=== PATIENT | female | born 1985 | race Two or more races ===

== ENCOUNTER 2019-09-04 10:40 | Emergency (ER) | payer OTHER ==
--- NOTE | 2019-09-04 10:55 | ER Document Report ---
ED Medical Screen (RME) - General Chief Complaint: Chest Pain Stated Complaint: CHEST/BACK/SIDE PAIN Time Seen by Provider: 09/04/19 10:45 - HPI Notes: 09/04/19 10:57 34 year old female to the ED with C/O left sided chest pain, flank pain, and back pain that began one week ago and has persisted. States that she was seen at the ER about 4 days ago and was given Flexeril. She states that this has not helped her pain. Movement increases her pain but she has baseline pain throughout. Denies any urinary complaints, hematuria, recent travel, leg swelling, history of clots, history of coagulopathy or familial coagulopathy. S he does not smoke, she does not have hypertension, diabetes, hyperlipidemia. I performed a brief medical screening exam on this patient and determined he needs further management and evaluation by means at ER provider. I placed initial orders to help expedite in his treatment plan today to include lab work and medications. - Related Data Allergies/Adverse Reactions: acetaminophen [From Vicodin] Allergy (Verified 09/04/19 10:57) hydrocodone [From Vicodin] Allergy (Verified 09/04/19 10:57) metoclopramide [From Reglan] Allergy (Verified 09/04/19 10:57)
[2019-09-04] MEDS ORDERED: KETOROLAC TROMETHAMINE INJ/PF 30 MG/1 ML SDV IV ONE (10:56)
[2019-09-04] MEDS ORDERED: ONDANSETRON HCL INJ/PF 4 MG/2 ML SDV IV ONE (10:56)
--- NOTE | 2019-09-04 12:11 | RADIOLOGY REPORT (SQ) ---
EXAM DESCRIPTION: CHEST 2 VIEWS COMPLETED DATE/TIME: 09/04/2019 11:58 am REASON FOR STUDY: chest pain/flank COMPARISON: None. EXAM PARAMETERS: NUMBER OF VIEWS: two views TECHNIQUE: Digital Frontal and Lateral radiographic views of the chest acquired. RADIATION DOSE: NA LIMITATIONS: none FINDINGS: LUNGS AND PLEURA: No opacities, masses or pneumothorax. No pleural effusion. MEDIASTINUM AND HILAR STRUCTURES: No masses or contour abnormalities. HEART AND VASCULAR STRUCTURES: Heart normal size. No evidence for failure. BONES: No acute findings. HARDWARE: None in the chest. OTHER: No other significant finding. IMPRESSION: NO ACUTE RADIOGRAPHIC FINDING IN THE CHEST. TECHNICAL DOCUMENTATION: JOB ID: [id number] [employer]- All Rights Reserved Reading location - IP/workstation name: [email or web address]
[2019-09-04 12:26] LABS: ABSOLUTE LYMPHOCYTES (AUTO) 1.7 10^3/uL (0.5-4.7); ABSOLUTE MONOCYTES (AUTO) 0.4 10^3/uL (0.1-1.4); APPEARANCE,URINE CLEAR; BASOPHILS % (AUTO) 0.4 % (0-2); BILIRUBIN,URINE NEGATIVE (NEGATIVE); COLOR,URINE STRAW; EOSINOPHILS % (AUTO) 0.7 % (0-6); GLUCOSE, URINE NEGATIVE (NEGATIVE); HEMATOCRIT 42.9 % (36.0-47.0); HEMOGLOBIN 14.8 g/dL (12.0-15.5); KETONES,URINE NEGATIVE (NEGATIVE); LYMPHOCYTES % (AUTO) 27.5 % (13-45); MEAN CORPUSCULAR HEMOGLOBIN 30.6 pg (27.0-33.4); MEAN CORPUSCULAR HGB CONC 34.5 g/dL (32.0-36.0); MEAN CORPUSCULAR VOLUME 89 fl (80-97); MONOCYTES % (AUTO) 6.6 % (3-13); PLATELET COUNT 210 10^3/uL (150-450); PROTEIN,URINE NEGATIVE (NEGATIVE); RED BLOOD COUNT 4.85 10^6/uL (3.72-5.28); RED CELL DISTRIBUTION WIDTH 13.4 % (11.5-14.0); SEGMENTED NEUTROPHILS % (AUTO) 64.8 % (42-78); TOTAL CELLS COUNTED % (AUTO) 100 %; URINE SPECIFIC GRAVITY 1.005; UROBILINOGEN,URINE NEGATIVE mg/dL (<2.0); WHITE BLOOD COUNT 6.2 10^3/uL (4.0-10.5)
[2019-09-04 12:51] LABS: ALBUMIN 4.6 g/dL (3.5-5.0); ALKALINE PHOSPHATASE 50 U/L (38-126); ANION GAP 10 (5-19); ASPARTATE AMINO TRANSFERASE 18 U/L (14-36); BILIRUBIN,TOTAL 0.6 mg/dL (0.2-1.3); BLOOD UREA NITROGEN 14 mg/dL (7-20); CALCIUM 9.7 mg/dL (8.4-10.2); CARBON DIOXIDE 26 mmol/L (22-30); CHLORIDE 103 mmol/L (98-107); GLUCOSE 88 mg/dL (75-110); POTASSIUM 4.5 mmol/L (3.6-5.0); TOTAL PROTEIN 8.2 g/dL (6.3-8.2)
[2019-09-04] MEDS ORDERED: PREDNISONE 20 MG TABLET PO ONE (14:47)
--- NOTE | 2019-09-04 14:51 | ER Document Report ---
ED Cardiac - General Chief Complaint: Chest Pain Stated Complaint: CHEST/BACK/SIDE PAIN Time Seen by Provider: 09/04/19 10:45 Information source: Patient Notes: HPI: 34-year-old female who states 1 week of some left-sided back pain worse when she takes a deep breath and moves her left arm radiating to her left chest. History of costochondritis x1 in the past. No runny nose, congestion, cough, fevers, calf pain or leg swelling, recent trips or travel. No other aggravating or relieving factors. No vomiting or diarrhea. ROS: See HPI All other review of systems reviewed and otherwise negative Reviewed vital signs and nursing note as charted by RN. PHYSICAL EXAM: CONSTITUTIONAL: Alert and oriented and responds appropriately to questions. Well-appearing; well-nourished HEAD: Normocephalic; atraumatic CARD: Regular rate and rhythm; no murmurs; symmetric distal pulses RESP: Normal chest excursion without splinting or tachypnea; breath sounds clear and equal bilaterally; no wheezes, no rhonchi, no rales; mild tenderness without swelling or erythema without apparent crepitus to the left posterior rib area ABD/GI: Normal bowel sounds; non-distended; soft, non-tender; no palpable organomegaly or masses BACK: The back appears normal and is non-tender to palpation EXT: Normal ROM in all joints; non-tender to palpation; no edema SKIN: No acute lesions noted NEURO: CN 2-12 intact; 5/5 bilateral upper and lower extremity strength with sensation intact to light touch PSYCH: The patient's mood and manner are appropriate. Grooming and personal hygiene are appropriate. TRAVEL OUTSIDE OF THE [place] IN LAST 30 DAYS: No - Related Data Allergies/Adverse Reactions: acetaminophen [From Vicodin] Allergy (Verified 09/04/19 10:57) hydrocodone [From Vicodin] Allergy (Verified 09/04/19 10:57) metoclopramide [From Reglan] Allergy (Verified 09/04/19 10:57) Past Medical History - Social History Smoking Status: Current Every Day Smoker Chew tobacco use (# tins/day): No Frequency of alcohol use: None Drug Abuse: None Family History: Reviewed & Not Pertinent Patient has suicidal ideation: No Patient has homicidal ideation: No Past Surgical History: Reports: Hx Hysterectomy Physical Exam - Vital signs Vitals: Pulse Ox 100 09/04/19 14:39 Course - Re-evaluation Re-evalutation: With the patient's heart rate, tenderness upon palpation, young age, no risk factors, I do believe PE E, ACS, and dissection to be unlikely. EKG shows heart of 66, normal sinus rhythm, normal axis, no ST elevation or depression. 09/04/19 14:48 Given the history and physical examination, labs and imaging as recorded, EKG as recorded, exam showing some tenderness to the left posterior ribs, with no obvious pneumothorax, with a history of costochondritis, patient will be discharged home. Patient has been taking ibuprofen with good relief from stero ids on previous diagnosis of costochondritis. Patient does not have a history of diabetes. I will provide a 5-day course of steroids. Strict return precautions have been explained. - Vital Signs Vital signs: Temp Pulse Resp BP Pulse Ox 100 09/04/19 14:39 - Laboratory Result Diagrams: 09/04/19 12:02 09/04/19 12:02 Laboratory results interpreted by me: 09/04/19 12:02 Urine Blood SMALL H Discharge - Discharge Clinical Impression: Chest wall pain Condition: Good Disposition: HOME, SELF-CARE Additional Instructions: Come back immediately for any increased pain, change in location or quality of pain, fevers or vomiting, calf pain or leg swelling, or any other acute problems. Please follow-up with the primary care physician for reassessment as discussed. Prescriptions: Prednisone [Deltasone 20 mg Tablet] 3 tab PO DAILY 4 Days #12 tablet
[2019-09-04 14:56] VITALS: BP 115/71
--- NOTE | 2019-09-04 16:19 | EKG REPORT ---
SEVERITY:- BORDERLINE ECG - SINUS RHYTHM PROBABLE LEFT ATRIAL ABNORMALITY : Confirmed by: Shyanne Pradhan MD 04-Sep-2019 16:17:18
== END 2019-09-04 15:16 | disposition home or self-care (01) ==
LOC: ER 10:40
DX: R07.89 Other chest pain (principal); M54.9 Dorsalgia, unspecified; F17.200 Nicotine dependence, unspecified, uncomplicated; Z88.6 Allergy status to analgesic agent; Z90.710 Acquired absence of both cervix and uterus
CPT/HCPCS: 93005; 36415; 83690; 85025; 80053; 81001; 84484; 71046; 93010; J1885; J7512; J2405; 96374; 96375; 99285